=== PATIENT | male | born 1955 | race Caucasian/White ===

== ENCOUNTER 2020-08-31 19:32 | Observation (INO) | payer BC, MEDICARE, SELFPAY ==
[2020-08-31] VITALS (9 sets, daily range): BP systolic 132–154; BP diastolic 60–68; PULSE 68–78; RESP 16–24; TEMP 37.2–38.2; O2SAT 94–100; BMI 32.4
--- NOTE | 2020-08-31 19:42 | CTR_ITS ---
PROCEDURE INFORMATION: Exam: CT Head Without Contrast Exam date and time: 08/31/2020 7:44 PM Age: 65 years old Clinical indication: Altered mental status/memory loss; Additional info: AMS TECHNIQUE: Imaging protocol: Computed tomography of the head without contrast. Radiation optimization: All CT scans at this facility use at least one of these dose optimization techniques: automated exposure control; mA and/or kV adjustment per patient size (includes targeted exams where dose is matched to clinical indication); or iterative reconstruction. Other technique: STROKE PROTOCOL was implemented. COMPARISON: No relevant prior studies available. RADIATION DOSE METRICS: Total DLP (mGy-cm): 999.95 FINDINGS: Brain: Mild cerebral atrophy and ischemic leukoencephalopathy. Cerebral ventricles: No ventriculomegaly. Paranasal sinuses: Moderate right sphenoid sinus disease. Mastoid air cells: Visualized mastoid air cells are well aerated. 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 Soft tissues: Unremarkable. CT/CT head wo con* [id number] IMPRESSION: 1. Moderate right sphenoid sinus disease. 2. No acute intracranial findings. ASSESSMENT: ASPECTS ([place] Stroke Program Early CT Score) is 10. Radiation Dose CTDIVOL = (mGy): DLP = 999.95 (mGy-cm)
--- NOTE | 2020-08-31 19:42 | XRR_ITS ---
PROCEDURE INFORMATION: Exam: XR Chest Exam date and time: 08/31/2020 7:43 PM Age: 65 years old Clinical indication: Other: AMS TECHNIQUE: Imaging protocol: XR of the chest. Views: 1 view. COMPARISON: No relevant prior studies available. FINDINGS: Lungs: Unremarkable. No consolidation. Pleural spaces: Unremarkable. No pleural effusion. No pneumothorax. Heart/Mediastinum: Mild globular cardiomegaly consistent with 4-chamber enlargment and/or pericardial effusion. Bones/joints: Unremarkable. Other findings: Lordotic chest x-ray. XR/XR chest 1V portable [id number] IMPRESSION: Mild globular cardiomegaly consistent with 4-chamber enlargment and/or pericardial effusion.
--- NOTE | 2020-08-31 19:42 | ECG_ITS ---
[facility] Test Date: 2020-08-31 Pat Name: Naresh Fu Department: Room: 266 Gender: Male Banking Manager: : 1955 Requested By: Glenys Garcia Order Number: [id number] Pamella MD: Kane Lawrence M.D. Measurements Intervals [place] Rate: 70 P: 30 AK: 176 QRS: 29 QRSD: 100 T: 26 QT: 452 QTc: 488 Interpretive Statements SINUS RHYTHM MINIMAL VOLTAGE CRITERIA FOR LVH, CONSIDER NORMAL VARIANT [MEETS CRITERIA IN ONE OF: R(aVL), S(V1), R(V5), R(V5/V6)+S(V1)] PROLONGED QT INTERVAL No previous ECG available for comparison Electronically Signed On 09-01-2020 10:10:49 CDT by Kane Lawrence M.D. [email or web address]
--- NOTE | 2020-08-31 19:48 | ED_ITS ---
HPI - Altered Mental Status General: Chief Complaint: Altered Mental Status Stated Complaint: ams Time Seen by Provider: 08/31/20 19:37 Source: patient and EMS Mode of arrival: EMS Limitations: altered mental status History of Present Illness: HPI narrative: 65-year-old male who is here from dialysis with altered mental status. He did went to dialysis and had 4 pounds off and then started having vomiting they gave him IM Phenergan. He started to become confused after that. He is quite lethargic here. He is responsive he is able to tell me his name but he is disoriented to time and place. Is also started after his Phenergan. He is febrile here. Patient did have a liver biopsy yesterday Review of Systems General: Reports: ROS unobtainable due to medical condition PFSH ED PFSH: Medical History (Updated 08/31/20 @ 21:40 by Glenys Garcia MD) CRF (chronic renal failure) Surgical History H/O cataract extraction H/O circumcision H/O colonoscopy H/O kidney removal Kidney transplant recipient S/P arteriovenous (AV) graft placement S/P hemodialysis catheter insertion Family History Other CAD (coronary artery disease) Cancer Diabetes Denies family history of Anesthesia complication Bleeding disorder Social History Smoking and tobacco status: never smoked Alcohol intake: never Household members: spouse Marital status: Current occupational status: previously employed History of recent travel: No Physical Exam Const: COMMON NORMALS: alert; negative for patient oriented x3 EXAM LIMITATIONS: altered mental status GENERAL APPEARANCE: lethargic ORIENTATION/CONSCIOUSNESS: Yes oriented to person and Yes lethargic; not oriented to place and not oriented to time HENMT: COMMON NORMALS: normocephalic and atraumatic HEAD & SCALP: normocephalic and atraumatic Eye: COMMON NORMALS: Equal, round and reactive pupils present and EOMs intact bilaterally PUPIL: Yes Equal, round and reactive pupils present Neck/C-Spine: COMMON NORMALS: full ROM and supple Chest: COMMONS NORMALS: normal inspection of the chest and normal palpation of entire chest wall Resp: COMMON NORMALS: normal respiratory effort, No retractions, No use of accessory muscles and clear to auscultation bilaterally AUSCULTATION: clear to auscultation bilaterally Cardio: COMMON NORMALS: regular rate, regular rhythm and No murmurs present (Cardio) RATE: regular rate RHYTHM: regular rhythm GI: COMMON NORMALS: Normal to inspection, nondistended, normoactive bowel sounds present, Soft to palpation, non-tender and no masses PALPATION: Yes Soft to palpation Extremity: COMMON NORMALS: normal to inspection and full ROM Neuro: COMMON NORMALS: moves all extremities and no focal motor deficits; negative for patient oriented x3 SENSORIUM/ORIENTATION: Yes alert, Yes oriented to person, No oriented to place, No oriented to time and Yes lethargic Psych: COMMON NORMALS: cooperative; negative for mental status grossly normal Skin: COMMON NORMALS: no rashes or lesions noted and no wounds GENERAL SKIN EXAM: no rashes or lesions noted Course Vital Signs: Vital signs: Vital Signs Temperature 100.7 F H 08/31/20 19:37 Pulse Rate 71 08/31/20 19:48 Respiratory Rate 19 H 08/31/20 19:48 Blood Pressure 154/62 08/31/20 19:48 Pulse Oximetry 97 08/31/20 19:48 MDM - Altered Mental Status MDM Narrative: Medical decision making narrative: Naresh presents with altered mental status likely from Phenergan. Patient became altered after IM Phenergan and he has been lethargic here. He has no signs of acute stroke and no focal deficits. He has improved here and become a little more alert. Patient did have a low-grade fever I believe he is not been feeling well from his Covid vaccine that he received yesterday. He has no signs of acute infection his white count lactates normal. We will admit for observation spoke to the hospitalist. Lab Data: Labs: Lab Results 08/31/20 08/31/20 08/31/20 Range/Units 20:06 20:06 20:06 WBC 4.7 (4.0-10.0) 10^3/ uL RBC 2.98 L (4.1-5.3) 10^6/u L Hgb 9.8 L (11.7-16.6) g/dL Hct 30.2 L (42.0-52.0) % MCV 101.3 H (80-94) fL MCH 32.9 (28.0-34.0) pg MCHC 32.5 (30.0-36.0) g/dL RDW 15.3 H (12.1-15.1) % Plt Count 230 (130-400) 10^3/c mm MPV 9.7 (7.4-10.4) fL Neut % (Auto) 71.7 % Lymph % (Auto) 17.9 % Ashe % (Auto) 8.5 % Eos % (Auto) 0.2 % Baso % (Auto) 1.1 % Neut # (Auto) 3.37 (1.8-7.7) 10^3/u L Lymph # (Auto) 0.8 (0.8-4.8) 10^3/u L Ashe # (Auto) 0.4 (0.2-0.9) 10^3/u L Eos # (Auto) 0.0 (0.0-0.8) 10^3/u L Baso # (Auto) 0.1 (0.0-0.1) 10^3/u L Nucleated RBC % (a uto) 0 % Nucleated RBCs # 0.0 /100WBC PT 15.20 H (12.1-14.9) SECO NDS INR 1.17 (0.8-1.2) Sodium 138 (136-145) mmol/L Potassium 3.4 L (3.5-5.1) mmol/L Chloride 95 L (98-107) mmol/L Carbon Dioxide 32 H (22-29) mmol/L Anion Gap 14.4 (5-19) BUN 13 (8-23) mg/dL Creatinine 2.4 H (0.7-1.2) mg/dL GFR Calculation 27.3 L (90-130) mL/min Glucose 92 (65-115) mg/dL Calculated Osmolal ity 286 (285-295) mOsm/k g Lactic Acid (0.5-2.2) mmol/L Calcium 8.4 L (8.5-10.5) mg/dL Total Bilirubin 0.5 (0.15-1.2) mg/dL AST 17 (0-40) U/L ALT 10 (0-41) U/L Alkaline Phosphata se 86 (40-130) IU/L Total Protein 6.3 L (6.6-8.7) g/dL Albumin 4.0 (3.5-5.2) g/dL Globulin 2.3 (1.3-4.6) g/dL / Range/Units 20:06 WBC (4.0-10.0) 10^3/ uL RBC (4.1-5.3) 10^6/u L Hgb (11.7-16.6) g/dL Hct (42.0-52.0) % MCV (80-94) fL MCH (28.0-34.0) pg MCHC (30.0-36.0) g/dL RDW (12.1-15.1) % Plt Count (130-400) 10^3/c mm MPV (7.4-10.4) fL Neut % (Auto) % Lymph % (Auto) % Ashe % (Auto) % Eos % (Auto) % Baso % (Auto) % Neut # (Auto) (1.8-7.7) 10^3/u L Lymph # (Auto) (0.8-4.8) 10^3/u L Ashe # (Auto) (0.2-0.9) 10^3/u L Eos # (Auto) (0.0-0.8) 10^3/u L Baso # (Auto) (0.0-0.1) 10^3/u L Nucleated RBC % (a uto) % Nucleated RBCs # /100WBC PT (12.1-14.9) SECO NDS INR (0.8-1.2) Sodium (136-145) mmol/L Potassium (3.5-5.1) mmol/L Chloride (98-107) mmol/L Carbon Dioxide (22-29) mmol/L Anion Gap (5-19) BUN (8-23) mg/dL Creatinine (0.7-1.2) mg/dL GFR Calculation (90-130) mL/min Glucose (65-115) mg/dL Calculated Osmolal ity (285-295) mOsm/k g Lactic Acid 1.0 (0.5-2.2) mmol/L Calcium (8.5-10.5) mg/dL Total Bilirubin (0.15-1.2) mg/dL AST (0-40) U/L ALT (0-41) U/L Alkaline Phosphata se (40-130) IU/L Total Protein (6.6-8.7) g/dL Albumin (3.5-5.2) g/dL Globulin (1.3-4.6) g/dL Imaging Data^: CT Head: Attestation: I personally reviewed and interpreted this imaging study as follows: Radiologist's impression: [address] [address] [address] Scan Report Signed Patient: Naresh Fu Unit #: [id number] : 1955 Age/Sex: 65 / M ADM Date: 08/31/20 Loc: ER Room/Bed: Attending Dr: Ordering Provider/Ordering MD: Glenys Garcia MD Date of Service: 08/31/20 Procedure(s): CT head wo con* [id number] Accession Number(s): [id number] Report Number: [id number] PROCEDURE INFORMATION: Exam: CT Head Without Contrast Exam date and time: 08/31/2020 7:44 PM Age: 65 years old Clinical indication: Altered mental status/memory loss; Additional info: AMS TECHNIQUE: Imaging protocol: Computed tomography of the head without contrast. Radiation optimization: All CT scans at this facility use at least one of these dose optimization techniques: automated exposure control; mA and/or kV adjustment per patient size (includes targeted exams where dose is matched to clinical indication); or iterative reconstruction. Other technique: STROKE PROTOCOL was implemented. COMPARISON: No relevant prior studies available. RADIATION DOSE METRICS: Total DLP (mGy-cm): 999.95 FINDINGS: Brain: Mild cerebral atrophy and ischemic leukoencephalopathy. Cerebral ventricles: No ventriculomegaly. Paranasal sinuses: Moderate right sphenoid sinus disease. Mastoid air cells: Visualized mastoid air cells are well aerated. 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 Soft tissues: Unremarkable. CT/CT head wo con* [id number] IMPRESSION: 1. Moderate right sphenoid sinus disease. 2. No acute intracranial findings. CXR: Attestation: I personally reviewed and interpreted this imaging study as follows: Radiologist's impression: [address] [address] XRay Report Signed Patient: Naresh Fu Unit #: [id number] : 1955 Age/Sex: 65 / M ADM Date: 08/31/20 Loc: ER Room/Bed: Attending Dr: Ordering Provider/Ordering MD: Glenys Garcia MD Date of Service: 08/31/20 Procedure(s): XR chest 1V portable [id number] Accession Number(s): [id number] Report Number: [id number] PROCEDURE INFORMATION: Exam: XR Chest Exam date and time: 08/31/2020 7:43 PM Age: 65 years old Clinical indication: Other: AMS TECHNIQUE: Imaging protocol: XR of the chest. Views: 1 view. COMPARISON: No relevant prior studies available. FINDINGS: Lungs: Unremarkable. No consolidation. Pleural spaces: Unremarkable. No pleural effusion. No pneumothorax. Heart/Mediastinum: Mild globular cardiomegaly consistent with 4-chamber enlargment and/or pericardial effusion. Bones/joints: Unremarkable. Other findings: Lordotic chest x-ray. XR/XR chest 1V portable [id number] IMPRESSION: Mild globular cardiomegaly consistent with 4-chamber enlargment and/or pericardial effusion. CT Abd/Pel: Attestation: I personally reviewed and interpreted this imaging study as follows: Radiologist's impression: [address] [place] [address] CT Scan Report Signed Patient: Naresh Fu Unit #: [id number] : 1955 [id number] Age/Sex: 65 / M ADM Date: 08/31/20 Loc: ER Room/Bed: Attending Dr: Ordering Provider/Ordering MD: Glenys Garcia MD Date of Service: 08/31/20 Procedure(s): CT abdomen pelvis wo con [id number] Accession Number(s): [id number] Report Number: [id number] PROCEDURE INFORMATION: Exam: CT Abdomen And Pelvis Without Contrast Exam date and time: 08/31/2020 8:15 PM Age: 65 years old Clinical indication: Fever; Prior surgery; Surgery type: Renal trans, biopsy, neph; Additional info: New onset fever post dialysis. Recent covid vaccine TECHNIQUE: Imaging protocol: Computed tomography of the abdomen and pelvis without contrast. Radiation optimization: All CT scans at this facility use at least one of these dose optimization techniques: automated exposure control; mA and/or kV adjustment per patient size (includes targeted exams where dose is matched to clinical indication); or iterative reconstruction. COMPARISON: No relevant prior studies available. RADIATION DOSE METRICS: Total DLP (mGy-cm): 1818.84 FINDINGS: Liver: Calcified hepatic granulomas. Gallbladder and bile ducts: Tiny gallstones versus milk of calcium versus radiopaque debris in the dependent portion of the gallbladder. Pancreas: Normal. No ductal dilation. Spleen: Calcified splenic granulomas. Adrenal glands: Normal. No mass. Kidneys and ureters: Severe right renal atrophy. 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 Multiple left renal transplant cysts with the largest greater than 1 cm. Left lower quadrant renal transplant. Stomach and bowel: Unremarkable. No obstruction. No mucosal thickening. Appendix: No evidence of appendicitis. Intraperitoneal space: Unremarkable. No free air. No significant fluid collection. Vasculature: Severe calcified peripheral vascular disease. Lymph nodes: Calcified right hilar nodes and/or mediastinal nodes and/or lung granulomas consistent with old granulomatous disease. Urinary bladder: Unremarkable as visualized. Reproductive: Unremarkable as visualized. Bones/joints: Moderate to severe multilevel spine degenerative changes including degenerative disc disease, spondylosis and facet degenerative changes. Soft tissues: Heterogeneous 10.4 x 5.5 x 5.5 cm lesion in the left mesenteric fat most consistent with large mesenteric fat necrosis with possible calcifications versus suture material in the left superior portion of the abnormality. Impression Other findings: . CT/CT abdomen pelvis wo con [id number] IMPRESSION: 1. Severe right renal atrophy. 2. 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 3. Multiple left renal transplant cysts with the largest greater than 1 cm. 4. Tiny gallstones versus milk of calcium versus radiopaque debris in the dependent portion of the gallbladder. COMMENTS: Consistent with the [employer] [place]'s Incidental Findings Committee white paper (J Am Cha Radiol 2018): Any incidental renal lesion less than 1 cm or classified as too small to characterize, or any incidental cystic renal lesion characterized as simple-appearing, is likely benign. No follow-up imaging is recommended for these lesions per consensus recommendations based on imaging criteria. Radiation Dose CTDIVOL = (mGy): DLP = 1818.84 (mGy-cm) EKG Data^: EKG 1: Attestation: I personally reviewed and interpreted this EKG as follows: EKG interpretation date: 08/31/20 EKG interpretation time: 19:45 Interpretation: nsr hr [address] or t wave abnormalities qrs 100 qtc 472 Discharge Plan Discharge Patient Disposition: Placed in Observation Clinical Impression: Fever Altered mental status Qualifiers: Altered mental status type: unspecified Qualified Code(s): R41.82 - Altered mental status, unspecified Coding Level of Care Code ED Medical Legal Investigator for Chg Fwd Exam Comprehensive NIH stroke score NIHSS Level Of Consciousness - 1a: 0 Level Of Consciousness Questions - 1b: Both Correct Level Of Consciousness Commands - 1c: Both Correct Best Gaze - 2: Normal Visual Vanegas - 3: No Visual Loss Facial Palsy - 4: Normal Motor Arm Right - 5: No Drift Motor Arm Left - 5: No Drift Motor Leg Right - 6: No Drift Motor Leg Left - 6: No Drift Limb Ataxia - 7: Absent Sensory - 8: Normal Best Language - 9: No Aphasia Dysarthia - 10: Normal Extinction And Inattention - 11: 0 Score Total Score: 0
--- NOTE | 2020-08-31 20:00 | CTR_ITS ---
PROCEDURE INFORMATION: Exam: CT Abdomen And Pelvis Without Contrast Exam date and time: 08/31/2020 8:15 PM Age: 65 years old Clinical indication: Fever; Prior surgery; Surgery type: Renal trans, biopsy, neph; Additional info: New onset fever post dialysis. Recent covid vaccine TECHNIQUE: Imaging protocol: Computed tomography of the abdomen and pelvis without contrast. Radiation optimization: All CT scans at this facility use at least one of these dose optimization techniques: automated exposure control; mA and/or kV adjustment per patient size (includes targeted exams where dose is matched to clinical indication); or iterative reconstruction. COMPARISON: No relevant prior studies available. RADIATION DOSE METRICS: Total DLP (mGy-cm): 1818.84 FINDINGS: Liver: Calcified hepatic granulomas. Gallbladder and bile ducts: Tiny gallstones versus milk of calcium versus radiopaque debris in the dependent portion of the gallbladder. Pancreas: Normal. No ductal dilation. Spleen: Calcified splenic granulomas. Adrenal glands: Normal. No mass. Kidneys and ureters: Severe right renal atrophy. 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 Multiple left renal transplant cysts with the largest greater than 1 cm. Left lower quadrant renal transplant. Stomach and bowel: Unremarkable. No obstruction. No mucosal thickening. Appendix: No evidence of appendicitis. Intraperitoneal space: Unremarkable. No free air. No significant fluid collection. Vasculature: Severe calcified peripheral vascular disease. Lymph nodes: Calcified right hilar nodes and/or mediastinal nodes and/or lung granulomas consistent with old granulomatous disease. Urinary bladder: Unremarkable as visualized. Reproductive: Unremarkable as visualized. Bones/joints: Moderate to severe multilevel spine degenerative changes including degenerative disc disease, spondylosis and facet degenerative changes. Soft tissues: Heterogeneous 10.4 x 5.5 x 5.5 cm lesion in the left mesenteric fat most consistent with large mesenteric fat necrosis with possible calcifications versus suture material in the left superior portion of the abnormality. Impression Other findings: . CT/CT abdomen pelvis wo con [id number] IMPRESSION: 1. Severe right renal atrophy. 2. 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 3. Multiple left renal transplant cysts with the largest greater than 1 cm. 4. Tiny gallstones versus milk of calcium versus radiopaque debris in the dependent portion of the gallbladder. COMMENTS: Consistent with the [employer]'s Incidental Findings Committee white paper (J Am Cha Radiol 2018): Any incidental renal lesion less than 1 cm or classified as too small to characterize, or any incidental cystic renal lesion characterized as simple-appearing, is likely benign. No follow-up imaging is recommended for these lesions per consensus recommendations based on imaging criteria. Radiation Dose CTDIVOL = (mGy): DLP = 1818.84 (mGy-cm)
[2020-08-31 20:22] LABS: Basophils # 0.1 10^3/uL (0.0-0.1); Basophils % 1.1 %; Eosinophils % 0.2 %; Hematocrit 30.2 % (42.0-52.0); Hemoglobin 9.8 g/dL (11.7-16.6); Lymphocytes # 0.8 10^3/uL (0.8-4.8); Lymphocytes % 17.9 %; Mean Corpuscular HGB Conc 32.5 g/dL (30.0-36.0); Mean Corpuscular Hemoglobin 32.9 pg (28.0-34.0); Mean Corpuscular Volume 101.3 fL (80-94); Mean Platelet Volume 9.7 fL (7.4-10.4); Monocytes # 0.4 10^3/uL (0.2-0.9); Monocytes % 8.5 %; Neutrophils # 3.37 10^3/uL (1.8-7.7); Neutrophils % 71.7 %; Nucleated Red Blood Cells % 0 %; Platelet Count 230 10^3/cmm (130-400); Red Blood Count 2.98 10^6/uL (4.1-5.3); Red Cell Distribution Width 15.3 % (12.1-15.1); White Blood Count 4.7 10^3/uL (4.0-10.0)
[2020-08-31] MEDS: acetaminophen 325 mg Tablet 650 MG PO (20:26)
[2020-08-31 20:38] LABS: Alanine Aminotransferase 10 U/L (0-41); Alkaline Phosphatase 86 IU/L (40-130); Anion Gap 14.4 (5-19); Aspartate Amino Transferase 17 U/L (0-40); Blood Urea Nitrogen 13 mg/dL (8-23); Calcium 8.4 mg/dL (8.5-10.5); Carbon Dioxide 32 mmol/L (22-29); Chloride 95 mmol/L (98-107); Globulin 2.3 g/dL (1.3-4.6); Glomerular Filtration Rate 27.3 mL/min (90-130); Glucose 92 mg/dL (65-115); INR 1.17 (0.8-1.2); Osmolality Calculated 286 mOsm/kg (285-295); Potassium 3.4 mmol/L (3.5-5.1); Sodium 138 mmol/L (136-145); Total Bilirubin 0.5 mg/dL (0.15-1.2); Total Protein 6.3 g/dL (6.6-8.7)
--- NOTE | 2020-08-31 21:37 | P.HP_ITS ---
Providers/Chief Complaint Chief Complaint: ams History of Present Illness Naresh Fu is a 65 year old male who has history of kidney transplant, on Eliquis compromise, use of steroids on daily basis, hemodialysis dependent Saturday presented today after an episode of emesis at the dialysis center today. Patient is stating that he received his second dose of Covid vaccine yesterday, he did not notice any reactions afterwards. Today he went for dialysis and at the end of his dialysis session he experienced only one episode of emesis,(at the dialysis center he was given 12.5 mg of Phenergan after that he became confused) he did not experience any chills, rigors, chest pain, shortness of breath. No recent change in his bowel movement, he does make small amount of urine no recent dysuria. No productive cough or any new ulcers noted. He was sent to the ER for further evaluation because of his emesis. In the ER he was febrile 100.7, respiratory rate 19, no leukocytosis, hemoglobin 9.8, macrocytic anemia, hypokalemic head CT unremarkable chest x-ray unremarkable abdominal CT scan revealed calcified/debrided gallbladder otherwise unremarkable, fat necrosis At the time of my evaluation patient was comfortable, Ellsworth sign negative, blood culture, urinalysis requested he received 6050 mg of Tylenol in the ER Patient was awake alert oriented x3 GCS 15 at the time my evaluation he was not confused at all, no signs of meningitis Patient denied history of NM, CHF, cancer or stroke in the past, he takes 8 mg of Coumadin for history of A. fib, subtherapeutic INR 1.1 Review of Systems Const: Reports: fever(s); Denies: chills, body aches or fatigue Eyes: Denies: change in vision ENMT: Denies: throat pain Card: Denies: chest pain Resp: Denies: dyspnea GI: Denies: abdominal pain : Denies: flank pain Musc: Reports: muscle cramps Skin/Breast: Denies: lesions Neuro: Denies: headache(s) Psych: Denies: anxiety Endo: Denies: polyuria Yomi/Lymph: Denies: easy bruising All/Imm: Denies: urticaria Medications/Allergies Home Medications Medication Instructions Recorded Confirmed Last Taken Type aspirin 81 mg tablet,delayed 81 mg PO DAILY 01/12/20 08/31/2021 History release calcitriol 0.25 mcg capsule 0.25 mcg PO DAILY 01/12/20 08/31/20 08/31/20 History carvedilol 3.125 mg tablet 6.25 mg PO BID 01/12/20 08/31/20 08/31/20 History fluoxetine 20 mg capsule 20 mg PO DAILY 01/12/20 08/31/20 08/31/20 History gemfibrozil 600 mg tablet 600 mg PO BID 01/12/20 08/31/20 08/31/20 History oxybutynin chloride 5 mg tablet 5 mg PO BID 01/12/20 08/31/20 08/31/20 History prednisone 5 mg tablet 5 mg PO DAILY 01/12/20 08/31/20 08/31/20 History ropinirole 1 mg tablet 2 mg PO BEDTIME tab 01/12/20 08/31/20 08/30/20 History sennosides 8.6 mg-docusate sodium 1 tab-cap PO DAILY 01/12/20 08/31/20 Unknown History 50 mg tablet sevelamer HCl 800 mg tablet 1,600 mg PO TID 01/12/20 08/31/20 08/31/20 History vitamin B complex 1 tab PO DAILY 01/12/20 08/31/20 08/31/20 History PreserVision AREDS-2 1 tab PO DAILY 08/31/20 08/31/20 08/31/20 History acetaminophen [Tylenol Extra 500 - 1,000 mg PO Q6H PRN 08/31/20 08/31/20 Unknown History Strength] amlodipine 10 mg PO DAILY 08/31/20 08/31/20 08/31/20 History cholecalciferol (vitamin D3) 50 mcg PO BID 08/31/20 08/31/20 08/31/20 History [Vitamin D3] cyanocobalamin (vitamin B-12) 100 mcg PO DAILY 08/31/20 08/31/20 08/31/20 History [Vitamin B-12] enoxaparin See Rx Instructions .ROUTE .COMPLEX 08/31/20 08/31/20 08/30/20 History gabapentin 100 mg PO DAILY 08/31/20 08/31/20 08/31/20 History omeprazole 10 mg PO DAILY 08/31/20 08/31/20 08/31/20 History warfarin See Rx Instructions .ROUTE .COMPLEX 08/31/20 08/31/20 08/26/20 History warfarin See Rx Instructions .ROUTE .COMPLEX 08/31/20 08/31/20 08/26/20 History Allergies Allergy/AdvReac Type Severity Reaction Status Date / Time adhesive tape Allergy ALGY-Rash Verified 01/11/20 10:27 atorvastatin [From Lipitor] Allergy ALGY-Joint Verified 01/11/20 10:27 Pain PFSH Acute PFSH: Medical History (Updated 08/31/20 @ 22:09 by Carlos Pimentel MD) Atrial fibrillation CRF (chronic renal failure) 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 Surgical History H/O cataract extraction H/O circumcision H/O colonoscopy H/O kidney removal Kidney transplant recipient S/P arteriovenous (AV) graft placement S/P hemodialysis catheter insertion Family History Other CAD (coronary artery disease) Cancer Diabetes Denies family history of Anesthesia complication Bleeding disorder Social History Smoking and tobacco status: never smoked Alcohol intake: never Household members: spouse Marital status: Current occupational status: previously employed History of recent travel: No Vitals/I&O/Wt Last Vital Signs Temp 100.7 F H 08/31/20 19:37 Pulse 71 08/31/20 19:48 Resp 19 H 08/31/20 19:48 BP 154/62 08/31/20 19:48 Pulse Ox 97 08/31/20 19:48 Weight last 48 hrs Weight 102.512 kg Physical Exam Narrative: EXAM NARRATIVE: elderly male who was laying comfortably in his bed Awake alert oriented x3 GCS 15 No neurological deficits, he was able to follow my commands he was cooperative and pleasant during my evaluation S1, S2 systolic murmur all over precordium variable heart sounds No active signs of fluid overload Abdomen soft negative Ellsworth sign, nontender no guarding or rigidity Lower extremity no edema gangrene or ulcer he is wearing compression stockings No signs of meningitis EOMI, PERRLA Dry mucous membranes looks clinically dehydrated Appropriate mood and affect Data : 08/31/20 20:06 08/31/20 20:06 Micro: Microbiology 08/31/20 20:10 Blood Culture - Preliminary Blood SPECIMEN COLLECTED 08/31/20 20:06 Blood Culture - Preliminary Blood SPECIMEN COLLECTED A&P Assessment and plan (1) Fever: Fever without active sepsis He does not meet sepsis criteria however his temperature is one 0.7 respiratory rate is 19, systolic blood pressure 145 mmHg, no leukocytosis, lactic acid is normal chest x-ray is unremarkable CT abdomen revealed calcified debris in gallstones, Ellsworth sign is negative, head CT unremarkable exam mastoiditis No active encephalopathy noted, no signs of meningitis I would hold off on adding any antibiotics for now I would like to give consideration to second dose of Covid vaccine which was administered yesterday, Procalcitonin unremarkable I do not believe his symptoms are angina equivalent, EKG sinus rhythm with LVH findings, will request baseline troponin Overnight monitoring give Tylenol for febrile episodes Status: Acute (2) Hypokalemia: Status: Acute Additional A&P Information History of atrial fibrillation: Patient takes 8 mg of Coumadin Subtherapeutic INR I will give him therapeutic dose of Lovenox for now Continue AV sarina blocking agent Steroid-induced hyperglycemia: Current blood glucose within normal range We will check A1c level End-stage renal disease history of kidney transplant Saturday, his next dialysis session will be on Saturday no urgent need of dialysis session Hypokalemia: Potassium repleted with low-dose Full code Renal dialysis diet DVT prophylaxis not indicated Attestations Medical Necessity Statement*: Anticipating discharge less than 48 hours overnight monitoring needed because of febrile episode he does not meet sepsis criteria Time Spent in Patient Care: 30mins Coding Level of Care Code Acute Finish Off Operator for Jackie Fitch Diagnoses Fever R50.9 Hypokalemia E87.6
[2020-08-31] MEDS: potassium chloride ER 20 mEq Tablet PO (23:26)
[2020-08-31] MEDS: enoxaparin 100 mg/mL Syringe SUBCUT (23:26)
[2020-09-01 04:00] VITALS: BP 162/81; PULSE 60; RESP 17; TEMP 36.9; O2SAT 98
[2020-09-01 06:39] LABS: Basophils # 0.1 10^3/uL (0.0-0.1); Basophils % 1.4 %; Eosinophils # 0.1 10^3/uL (0.0-0.8); Hematocrit 30.4 % (42.0-52.0); Hemoglobin 9.7 g/dL (11.7-16.6); Lymphocytes # 1.4 10^3/uL (0.8-4.8); Lymphocytes % 39.3 %; Mean Corpuscular HGB Conc 31.9 g/dL (30.0-36.0); Mean Corpuscular Volume 103.4 fL (80-94); Mean Platelet Volume 9.9 fL (7.4-10.4); Monocytes # 0.6 10^3/uL (0.2-0.9); Monocytes % 15.8 %; Neutrophils # 1.45 10^3/uL (1.8-7.7); Neutrophils % 40.9 %; Nucleated Red Blood Cells % 0 %; Platelet Count 205 10^3/cmm (130-400); Red Blood Count 2.94 10^6/uL (4.1-5.3); Red Cell Distribution Width 15.5 % (12.1-15.1); White Blood Count 3.5 10^3/uL (4.0-10.0)
[2020-09-01 06:47] LABS: INR 1.26 (0.8-1.2)
[2020-09-01 07:00] LABS: Anion Gap 13.9 (5-19); Blood Urea Nitrogen 18 mg/dL (8-23); Calcium 8.3 mg/dL (8.5-10.5); Carbon Dioxide 33 mmol/L (22-29); Chloride 96 mmol/L (98-107); Glomerular Filtration Rate 18.9 mL/min (90-130); Glucose 85 mg/dL (65-115); Osmolality Calculated 289 mOsm/kg (285-295); Potassium 3.9 mmol/L (3.5-5.1); Sodium 139 mmol/L (136-145)
[2020-09-01 07:37] LABS: Troponin T (5th) Once 153 ng/L (0-15)
[2020-09-01 07:54] VITALS: BP 150/78; PULSE 63; RESP 16; TEMP 36.9; O2SAT 99
[2020-09-01] MEDS: calcitriol 0.25 mcg Capsule PO (09:09)
[2020-09-01] MEDS: predniSONE 5 mg Tablet PO (09:09)
[2020-09-01] MEDS: carvedilol 3.125 mg Tablet 6.25 MG PO (09:09)
[2020-09-01] MEDS: cholecalciferol (vitamin D3) 1,000 unit Tablet 2000 UNIT PO (09:09)
[2020-09-01] MEDS: pantoprazole DR 40 mg Tablet PO (09:10)
[2020-09-01] MEDS: oxybutynin 5 mg Tablet PO (09:10)
[2020-09-01] MEDS: aspirin 81 mg EC Tablet PO (09:10)
--- NOTE | 2020-09-01 09:48 | ECG_ITS ---
[facility] ED Test Date: 2020-09-01 Pat Name: Naresh Fu Department: Room: 266 Gender: Male [employer]worker [employer]: : 1955 Requested By: Marin Kunz Order Number: [id number] Pamella MD: Sue Garcia M.D. Measurements Intervals Marine Rate: 100 P: NM: QRS: -1 QRSD: 102 T: -7 QT: 373 QTc: 481 Interpretive Statements ATRIAL FIBRILLATION WITH RAPID VENTRICULAR RESPONSE VOLTAGE CRITERIA FOR LVH [MEETS CRITERIA IN ONE OF: R(aVL), S(V1), R(V5), R(V5/V6)+S(V1)] Compared to ECG 08/31/2020 19:45:21 Sinus rhythm no longer present Prolonged QT interval no longer present Electronically Signed On 09-01-2020 18:33:26 CDT by Sue Garcia M.D. [id number]
--- NOTE | 2020-09-01 11:10 | PC.CHAP ---
Pastoral Care Encounter/Spiritual Assessment Type of Contact [] Declined asl interpreter visit [] Patient/Family/Request visit [] Outpatient visit [] Follow-up visit [] Physician referral [] Code/Alert [x] Routine visit [] Staff referral [] Actively dying [] Patient sleeping [] Family support [] [] Out of room [] Palliative care [] [x] Receiving care in room [] Pre-surgical visit [] Trauma [] Long length of stay [] ICU visit [] Other: Relational/Emotional Strength [x] Patient feels connected with others/family/visitors/staff [] Distress [] Loneliness/isolation [] Abandonment Spirituality of Patient [x] Person of Shira [] Attends Quaker of their Shira [x] Believes in Prayer [] Reads Bible or Quaker materials [] There are Spiritual issues to be addressed Machine Operator Assistant Interventions [x] Prayer [x] Active listening [x] Non-anxious presence [x] Spiritual/emotional support [] Crisis/trauma care [x] Spiritual counseling [] Bereavement support [] Provided bereavement packet [] Provided Bible/devotional materials [] Provided toy/stuffed animal, coloring book to patient or family member [] Provided Communion [] Anointing/[place] [] Salvation [x] Completed spiritual assessment [] Other: Impact on Illness or Injury [] Angry [] Fearful [x] Anxious [] Often cries [] Exhaustion [] Unable to work [] Unable to attend buddhism [] Unable to walk/stand [] Unable to read [] Unable to drive [] Unable to eat/drink [] Unable to sleep [] Unable to be with family [] Patient intubated [] Other: Summary waiting on the result from [employer] work and tests, the docotor stakk checling on him every two hours, has a good attitude and wnts to home soon, +1 Time spent with patient 10 mins
[2020-09-01 12:00] VITALS: BP 125/66; PULSE 72; RESP 18; TEMP 37.4; O2SAT 94
--- NOTE | 2020-09-01 12:10 | USCV_ITS ---
NagaNaresh vega Age: 65 Gender: M : 1955 Exam Date: 09/01/2020 13:36 Ordering Phys: Marin Kunz MD Technologist: Cleopatra Voss [place] [facility] [place]: Elevated troponin BP: 150 / 78 HR: 78 Rhythm: Sinus Technical Quality: Adequate MEASUREMENTS (Male / Female) Normal Values 2D ECHO LV Diastolic Diameter PLAX 5.5 cm 4.2 - 5.9 / 3.9 - 5.3 cm LV Systolic Diameter PLAX 4.4 cm LV Chamber Size 5.0 cm IVS Diastolic Thickness 1.9 cm 0.6 - 1.0 / 0.6 - 0.9 cm IVS Systolic Thickness 2.5 cm LVPW Diastolic Thickness 2.1 cm 0.6 - 1.0 / 0.6 - 0.9 cm LVPW Systolic Thickness 2.5 cm RV Chamber Size 3.1 cm LVOT Diameter 2.0 cm LV Ejection Fraction 2D Teich 40.6 % LV Ejection Fraction MOD 2C 66.7 % LV Ejection Fraction 2C AL 67.7 % LA Diameter 3.9 cm LA Width 5.1 cm LA Height 7.1 cm RA Width 4.1 cm RA Height 4.9 cm Aorta at Sinotubular Diameter 2.3 cm M-MODE LV Diastolic Diameter MM 4.8 cm 4.2 - 5.9 / 3.9 - 5.3 cm LV Systolic Diameter MM 2.8 cm LV Ejection Fraction MM Teich 71.4 % IVS Diastolic Thickness MM 1.5 cm 0.6 - 1.0 / 0.6 - 0.9 cm IVS Systolic Thickness MM 2.0 cm LVPW Diastolic Thickness MM 1.7 cm 0.6 - 1.0 / 0.6 - 0.9 cm LVPW Systolic Thickness MM 2.1 cm Aortic Annulus Diameter 3.3 cm LA Ao Ratio MM 1.2 MV E Point Septal Separation 0.5 cm DOPPLER AV Peak Velocity 350.3 cm/s LVOT Peak Velocity 116.7 cm/s AV Area Cont Eq vti 1.4 cm squared AV Area Cont Eq pk 1.1 cm squared MV Area PHT 3.5 cm squared Mitral E to A Ratio 0.8 MV E' Velocity 43.0 cm/s Mitral E to MV E' Ratio 9.4 Mitral E to LV E' Lateral Ratio 9.4 Mitral E to LV E' Septal Ratio 9.4 TR Peak Velocity 319.8 cm/s TR Peak Gradient 40.9 mmHg TV Peak E Velocity 53.0 cm/s Right Atrial Pressure 3.0 mmHg Pulmonary Artery Systolic Pressu 43.9 mmHg PV Peak Velocity 139.0 cm/s RV Acceleration Time 0.1 s RV Ejection Time 0.4 s RV AcT/ET 0.3 FINDINGS Left Ventricle Normal left ventricular cavity size. Increased left ventricular wall thickness. Mild left ventricular hypertrophy. Normal left ventricular systolic function. Grade II diastolic dysfunction, moderately elevated filling pressures. Right Ventricle Normal right ventricular size and systolic function. Right ventricular systolic pressure 36 mmHg. Right Atrium Normal right atrial size. Left Atrium Mildly increased left atrial size. Mitral Valve Mild mitral annular calcification. Mildly thickened mitral valve. No mitral valve stenosis. Trace mitral valve regurgitation. Aortic Valve Thickened and calcified aortic valve. Moderate aortic valve stenosis, peak velocity 3.5 m/s, peak gradient 50 mmHg, mean gradient 21 mmHg, CHEN 1.3 cm squared. Mild aortic valve regurgitation. Tricuspid Valve Tricuspid valve not well visualized. Trace tricuspid valve regurgitation. Pulmonic Valve No pulmonary valve stenosis. Trace pulmonary valve regurgitation. Pericardium No pericardial effusion. Aorta Normal-sized aortic root. CONCLUSIONS 1. Normal left ventricular cavity size. Increased left ventricular wall thickness. Mild left ventricular hypertrophy. Normal left ventricular systolic function. Grade II diastolic dysfunction, moderately elevated filling pressures. 2. Normal right ventricular size and systolic function. 3. Mild pulmonary hypertension with pulmonary artery pressure estimated at 36 mmHg. 4. Moderate aortic valve stenosis, peak velocity 3.5 m/s, peak gradient 50 mmHg, mean gradient 21 mmHg, CHEN 1.3 cm squared. Mild aortic valve regurgitation. 5. No prior similar studies to compare. Sue Garcia MD (Electronically Signed) Final Date: 01 Sep 2020 18:59 S
[2020-09-01] MEDS: sevelamer 800 mg Tablet 1600 MG PO (13:20)
[2020-09-01] MEDS: warfarin 3 mg Tablet 9 MG PO (13:20)
--- NOTE | 2020-09-01 13:48 | ECG_ITS ---
[facility] ED Test Date: 2020-09-01 Pat Name: Naresh Fu Department: Room: 266 Gender: Male Mailing Manager: : 1955 Requested By: Marin Kunz Order Number: [id number] Reading MD: Sue Garcia M.D. Measurements Intervals [place] Rate: 71 P: 22 WA: 180 QRS: -5 QRSD: 97 T: 15 QT: 430 QTc: 468 Interpretive Statements SINUS RHYTHM MODERATE VOLTAGE CRITERIA FOR LVH, CONSIDER NORMAL VARIANT [MEETS CRITERIA IN ONE OF: R(aVL), S(V1), R(V5), R(V5/V6)+S(V1)] Compared to ECG 09/01/2020 10:05:40 Atrial fibrillation no longer present Electronically Signed On 09-01-2020 18:32:44 CDT by Sue Garcia M.D. [id number]
[2020-09-01 14:00] LABS: Add Urine Microscopic? YES; Bilirubin Urine Neg (Negative); Blood Urine Neg (Negative); Glucose Urine UA Norm (Normal); Ketones Urine Negative (Negative); Leukocyte Esterase Urine Negative (Negative); Nitrate Urine Negative (Negative); Protein Urine 3+ (Negative); Sulfosalicylic Acid Urine Positive (Negative); Urine Appearance Clear (CLEAR); Urine Color Yellow (Yellow); Urobilinogen Urine Norm (Negative); pH Urine 8 (5-7)
--- NOTE | 2020-09-01 14:07 | PM.DCS ---
Discharge Providers Date of Admission: 08/31/20 21:37 Date of Discharge: September 01, 2020 Attending Provider at Admission: Carlos Pimentel MD Attending Provider at Discharge: Marin Kunz Diagnoses at Discharge Discharge Diagnosis (1) Fever: Status: Acute (2) Hypokalemia: Status: Acute (3) Troponin level elevated: Status: Acute Reason for Visit Reason for Visit: ams Hospital Course Hospital Course 65-year-old gentleman with ESRD, undergoing imaging following with kidney transplant clinic, with history of atrial fibrillation, on chronic anticoagulation with warfarin, had recently undergone liver biopsy 2 days ago, had history also completed second shot of his COVID-19 vaccination, presented to ER after feeling unwell at hemodialysis clinic with episode of emesis, noted low-grade fever in ER 100.7. Chest x-ray, CT head, CT abdomen pelvis were performed. First unremarkable, latter with calcified gallbladder, otherwise unremarkable. Ellsworth sign negative. No abdominal pain. Ellsworth negative. Blood cultures collected. He was monitored without antibiotics. Had no further fever episodes. Today he is feeling very well according to him, and wanting to discharge home. On presentation troponin was obtained, and returned elevated at 150. Discussed finding with him. Discussed concern regarding risk factors for coronary disease. Denies prior cardiac history apart from atrial fibrillation. Denies any chest pain. He understands he may be at risk of acute NC, heart failure, or other additionally disabling or life-threatening event. He initially declined to have troponin EKG series completed, stating he was leaving AMA, however, had subsequently agreed to complete the series, and if able to be performed for 2 PM obtain TTE. Stating at 2 PM he would be leaving the hospital without any additional work-up or treatment. He states he understands that his work-up is not complete and as noted he may be at risk of undiagnosed condition. He understands to seek medical attention immediately anytime by return to the hospital, in case he changes mind or is feeling unwell. He otherwise is asked to follow-up with his PCP at soonest available appointment. Repeat troponin level appears to be stable. He has not had any chest pain while here. Overall I do suspect that his low-grade fever, trauma elevation likely were related to vaccination, with demand ischemia, and ESRD. However, as discussed with him cannot entirely exclude underlying significant coronary disease. He is continued on aspirin. Beta jose is not added due to AFib w slow ventricular response and him being told previously he needs a pacemaker, which he declined. Statin utility questionable given ESRD on HD. He did agree to stress testing but on outpatient basis, and this is requested for him. We also discussed his subtherapeutic INR, he states that he had recently undergone liver biopsy, and had detailed instructions to hold warfarin, this appears to be why his INR is subtherapeutic. Discussed with him to follow the instructions precisely as to resumption of the anticoagulation. He understands to contact the instrument in clinic with any questions. Physical Exam Const: COMMON NORMALS: no acute distress and patient oriented x3 HENMT: COMMON NORMALS: oropharynx normal Neck/C-Spine: COMMON NORMALS: no JVD Resp: COMMON NORMALS: normal respiratory effort and clear to auscultation bilaterally AUSCULTATION: clear to auscultation bilaterally Cardio: COMMON NORMALS: no JVD, regular rhythm, S1 normal heart sound present, S2 normal heart sound present and No murmurs present (Cardio) RHYTHM: regular rhythm HEART SOUNDS: S1 normal heart sound present and S2 normal heart sound present GI: COMMON NORMALS: Normal to inspection, nondistended, normoactive bowel sounds present, Soft to palpation and non-tender PALPATION: Yes Soft to palpation Extremity: COMMON NORMALS: no joint enlargement and no pedal edema OTHER: Left upper extremity fistula Neuro: COMMON NORMALS: patient oriented x3 and moves all extremities Skin: COMMON NORMALS: no rashes or lesions noted GENERAL SKIN EXAM: no rashes or lesions noted Discharge Data Data Completed and Pending: Completed Studies During Hospitalization Category Date Time Status CT abdomen pelvis wo con [id number] Urge nt Cat Scan 08/31/20 20:[address] head wo con* [id number] Urgent Cat Scan 08/31/20 19:42 Completed XR chest 1V john ble [id number] Urgent Exams 08/31/20 19:42 Completed Pending at discharge Category Date Time Status Blood Culture Sta t Lab 08/31/20 20:10 Results Troponin(5th) 6 h our. Timed Lab 09/01/20 13:30 Received CV echo complete* [id number] Stat Ultrasound 09/01/20 12:10 Taken Labs from last 24 hours 09/01/20 09/01/20 09/01/20 13:30 11:00 06:08 WBC RBC Hgb Hct MCV MCH MCHC RDW Plt Count MPV Neut % (Auto) Lymph % (Auto) [place] % (Auto) Eos % (Auto) Baso % (Auto) Neut # (Auto) Lymph # (Auto) [place] # (Auto) Eos # (Auto) Baso # (Auto) Nucleated RBC % (a uto) Nucleated RBCs # PT INR Sodium Potassium Chloride Carbon Dioxide Anion Gap BUN Creatinine GFR Calculation Glucose Calculated Osmolal ity Lactic Acid Calcium Total Bilirubin AST ALT Alkaline Phosphata se Troponin T Gen 5 n g/L 153 H* Troponin T 120 Min [place] 159.0 H Delta Troponin T 6.0 Troponin T Hi Sens 6Hr Pending Troponin T Hi Sens 6Hr Delta Pending Total Protein Albumin Globulin Procalcitonin Urine Color Urine Appearance Urine pH Ur Specific Gravit y Urine Protein Urine Glucose (UA) Urine Ketones Urine Blood Urine Nitrate Urine Bilirubin Prot Sulfosalicyli c Acd Urine Urobilinogen Ur Leukocyte Tracee ase Urine RBC Urine WBC Ur Squamous Epith Cells Amorphous Sediment Urine Bacteria 09/01/20 09/01/20 09/01/20 06:08 06:08 06:08 WBC 3.5 L RBC 2.94 L Hgb 9.7 L Hct 30.4 L MCV 103.4 H MCH 33.0 MCHC 31.9 RDW 15.5 H Plt Count 205 MPV 9.9 Neut % (Auto) 40.9 Lymph % (Auto) 39.3 [place] % (Auto) 15.8 Eos % (Auto) 2.0 Baso % (Auto) 1.4 Neut # (Auto) 1.45 L Lymph # (Auto) 1.4 [place] # (Auto) 0.6 Eos # (Auto) 0.1 Baso # (Auto) 0.1 Nucleated RBC % (a uto) 0 Nucleated RBCs # 0.0 PT 16.10 H INR 1.26 H Sodium 139 Potassium 3.9 Chloride 96 L Carbon Dioxide 33 H Anion Gap 13.9 BUN 18 Creatinine 3.3 H GFR Calculation 18.9 L Glucose 85 Calculated Osmolal ity 289 Lactic Acid Calcium 8.3 L Total Bilirubin AST ALT Alkaline Phosphata se Troponin T Gen 5 n g/L Troponin T 120 Min [place] Delta Troponin T Troponin T Hi Sens 6Hr Troponin T Hi Sens 6Hr Delta Total Protein Albumin Globulin Procalcitonin Urine Color Urine Appearance Urine pH Ur Specific Gravit y Urine Protein Urine Glucose (UA) Urine Ketones Urine Blood Urine Nitrate Urine Bilirubin Prot Sulfosalicyli c Acd Urine Urobilinogen Ur Leukocyte Tracee ase Urine RBC Urine WBC Ur Squamous Epith Cells Amorphous Sediment Urine Bacteria 08/31/20 08/31/20 08/31/20 20:06 20:06 20:06 WBC RBC Hgb Hct MCV MCH MCHC RDW Plt Count MPV Neut % (Auto) Lymph % (Auto) [place] % (Auto) Eos % (Auto) Baso % (Auto) Neut # (Auto) Lymph # (Auto) [place] # (Auto) Eos # (Auto) Baso # (Auto) Nucleated RBC % (a uto) Nucleated RBCs # PT INR Sodium 138 Potassium 3.4 L Chloride 95 L Carbon Dioxide 32 H Anion Gap 14.4 BUN 13 Creatinine 2.4 H GFR Calculation 27.3 L Glucose 92 Calculated Osmolal ity 286 Lactic Acid 1.0 Calcium 8.4 L Total Bilirubin 0.5 AST 17 ALT 10 Alkaline Phosphata se 86 Troponin T Gen 5 n g/L Troponin T 120 Min [place] Delta Troponin T Troponin T Hi Sens 6Hr Troponin T Hi Sens 6Hr Delta Total Protein 6.3 L Albumin 4.0 Globulin 2.3 Procalcitonin 0.40 Urine Color Urine Appearance Urine pH Ur Specific Gravit y Urine Protein Urine Glucose (UA) Urine Ketones Urine Blood Urine Nitrate Urine Bilirubin Prot Sulfosalicyli c Acd Urine Urobilinogen Ur Leukocyte Tracee ase Urine RBC Urine WBC Ur Squamous Epith Cells Amorphous Sediment Urine Bacteria 08/31/20 08/31/20 08/31/20 20:06 20:06 13:20 WBC 4.7 RBC 2.98 L Hgb 9.8 L Hct 30.2 L MCV 101.3 H MCH 32.9 MCHC 32.5 RDW 15.3 H Plt Count 230 MPV 9.7 Neut % (Auto) 71.7 Lymph % (Auto) 17.9 [place] % (Auto) 8.5 Eos % (Auto) 0.2 Baso % (Auto) 1.1 Neut # (Auto) 3.37 Lymph # (Auto) 0.8 [place] # (Auto) 0.4 Eos # (Auto) 0.0 Baso # (Auto) 0.1 Nucleated RBC % (a uto) 0 Nucleated RBCs # 0.0 PT 15.20 H INR 1.17 Sodium Potassium Chloride Carbon Dioxide Anion Gap BUN Creatinine GFR Calculation Glucose Calculated Osmolal ity Lactic Acid Calcium Total Bilirubin AST ALT Alkaline Phosphata se Troponin T Gen 5 n g/L Troponin T 120 Min [place] Delta Troponin T Troponin T Hi Sens 6Hr Troponin T Hi Sens 6Hr Delta Total Protein Albumin Globulin Procalcitonin Urine Color Yellow Urine Appearance Clear Urine pH 8 H Ur Specific Gravit y 1.010 Urine Protein 3+ H Urine Glucose (UA) Norm Urine Ketones Negative Urine Blood Neg Urine Nitrate Negative Urine Bilirubin Neg Prot Sulfosalicyli c Acd Positive Urine Urobilinogen Norm Ur Leukocyte Tracee ase Negative Urine RBC None Urine WBC None Ur Squamous Epith Cells None Amorphous Sediment Not Reportable Urine Bacteria None Vitals: Last Vital Signs Temp 99.3 F 09/01/20 12:00 Pulse 72 09/01/20 12:00 Resp 18 09/01/20 12:00 BP 125/66 09/01/20 12:00 Pulse Ox 94 09/01/20 12:00 Discharge Plan Discharge Patient Disposition: Left Against Medical Advice Condition: Fair Prescriptions: Continued aspirin [Adult Aspirin Regimen] 81 mg tablet,delayed release (DR/EC) 81 mg PO DAILY RF: 0 carvedilol 3.125 mg tablet 6.25 mg PO BID RF: 0 vitamin B complex [B Complex-Vitamin B12] Tablet 1 tab PO DAILY RF: 0 fluoxetine [Prozac] 20 mg capsule 20 mg PO DAILY RF: 0 gemfibrozil 600 mg tablet 600 mg PO BID RF: 0 prednisone 5 mg tablet 5 mg PO DAILY RF: 0 calcitriol 0.25 mcg capsule 0.25 mcg PO DAILY RF: 0 oxybutynin chloride 5 mg tablet 5 mg PO BID RF: 0 ropinirole 1 mg tablet 2 mg PO BEDTIME RF: 0 sennosides-docusate sodium [Senna-S] 8.6-50 mg tablet 1 tab-cap PO DAILY RF: 0 sevelamer HCl 800 mg tablet 1,600 mg PO TID RF: 0 povidone-iodine [Betadine Swabsticks] 10 % swab 1 applic TOPICAL ONCE Qty: 1 RF: 0 Vitamin B-12 100 mcg Tablet 100 mcg PO DAILY RF: 0 Tylenol Extra Strength 500 mg Tablet 500 - 1,000 mg PO Q6H PRN (Reason: Pain) RF: 0 omeprazole 10 mg Capsule,Delayed Release(Dr/Ec) 10 mg PO DAILY RF: 0 amlodipine 10 mg tablet 10 mg PO DAILY RF: 0 warfarin 5 mg tablet See Rx Instructions .ROUTE .COMPLEX RF: 0 gabapentin 100 mg capsule 100 mg PO DAILY RF: 0 warfarin 1 mg tablet See Rx Instructions .ROUTE .COMPLEX RF: 0 Vitamin D3 50 mcg (2,000 unit) Tablet 50 mcg PO BID RF: 0 PreserVision AREDS-2 1 tab PO DAILY RF: 0 enoxaparin See Rx Instructions .ROUTE .COMPLEX RF: 0 Discharge Orders: Discharge Order (Routine); Ordered 09/01/20 Ordered By: Marin Kunz Other Ambulatory Orders: Sestamibi Stress Test Request (Routine) Timeframe: 1 Day Facility: [facility] - Location: Cardiac Diagnostic Laboratory Ordered By: Marin Kunz Referrals: Gerson Garcia [Other] - 4-7 days Discharge Diet: As Directed Discharge Activity: Increase activity as tolerated Activity Restrictions/Additional Instructions: Please note that you are leaving the hospital prematurely before complete work-up can be done with regards to elevation of troponin, fever. Please note you may be at risk of ongoing or new heart attack, other serious illness, disability or . Please return to the hospital to continue care at any time. Otherwise please follow-up with your primary care provider at first available appointment. Please follow-up with them regarding elevation of troponin. Please complete stress test and discuss results with your primary provider. In case you are feeling unwell, any chest pain, high fever, or any other concerning symptoms seek medical attention without delay. Please follow the instructions given to you for resuming warfarin exactly after the liver biopsy. Please contact the clinic in case of any questions. Please follow-up with your primary provider with regards to liver biopsy. Continue hemodialysis as previously, continue follow-up with nephrology. Continue renal, hemodialysis diet. Please have your primary provider follow-up blood cultures collected in the hospital. Please follow up with your training and development manager. Discharge Attestations Time Spent in Discharge Care*: greater than 30 min Quality Metrics Clinical Quality Measures During this hospital stay, did patient experience: None Coding Level of Care Code Acute Chg FW DC note Exam Comprehensive Diagnoses Fever R50.9 Hypokalemia E87.6 Troponin level elevated R77.8
[2020-09-01 14:16] LABS: Troponin 5 6HR 152.1 ng/L (0-15)
[2020-09-01 16:00] VITALS: BP 138/72; PULSE 93; RESP 18; TEMP 37.5; O2SAT 92
[2020-09-01 17:02] LABS: Troponin 5 6HR Delta -0.9 ng/L (0-12)
[2020-09-01 17:38] VITALS: BP 138/72; PULSE 93; RESP 18; TEMP 37.5; O2SAT 92
== END 2020-09-01 16:00 | disposition left against medical advice (07) ==
LOC: ER 21:42 → MEDSURG 21:47
PROVIDERS: Admitting Provider Internal Medicine; Emergency Provider Emergency Medicine; Visit Provider Internal Medicine
DX: R50.9 Fever, unspecified (principal); E87.6 Hypokalemia; R77.8 Other specified abnormalities of plasma proteins; R10.84 Generalized abdominal pain; N18.6 End stage renal disease; Z94.0 Kidney transplant status; Z79.01 Long term (current) use of anticoagulants; I48.91 Unspecified atrial fibrillation; R79.89 Other specified abnormal findings of blood chemistry; Z79.82 Long term (current) use of aspirin; Z79.52 Long term (current) use of systemic steroids; E11.9 Type 2 diabetes mellitus without complications
CPT/HCPCS: 36415; 70450; 71045; 74176; 80048; 80053; 81001; 83605; 84145; 84484; 85025; 85610; 87040; 93005; 93306; 96372; 99285; G0378; J1650; J7512